=== PATIENT | female | born 1940 | race Caucasian/White ===

== ENCOUNTER 2022-06-24 12:13 | Emergency (ER) | payer MEDICARE, MEDICAID ==
[~2022-06-24] VITALS: Ht 147.3 cm; Wt 65.8 kg
== END 2022-06-24 15:25 | disposition home or self-care (01) ==
LOC: ED 12:13
DX: S01.01XA Laceration without foreign body of scalp, initial encounter (principal); W18.39XA Other fall on same level, initial encounter; Y93.89 Activity, other specified; Y92.89 Other specified places as the place of occurrence of the external cause; Y99.8 Other external cause status